=== PATIENT | female | born 1985 | race African-American/Black ===

== ENCOUNTER 2021-02-15 17:34 | Emergency (ER) | payer OTHER, MEDICAID ==
[~2021-02-15] VITALS: Ht 165.1 cm; Wt 70.0 kg
[2021-02-15 22:59] LABS: CLARITY URINE CLOUDY (CLEAR); COLOR URINE YELLOW (YELLOW); KETONES URINE NEGATIVE (NEGATIVE); LEUKOCYTE ESTERASE URINE 1+ (NEGATIVE); NITRITE URINE POSITIVE (NEGATIVE); OCCULT BLOOD URINE NEGATIVE (NEGATIVE); PROTEIN URINE NEGATIVE (NEGATIVE); SPECIFIC GRAVITY URINE 1.017 (1.005-1.030)
[2021-02-15 23:25] LABS: *BARBITURATES SCREEN URINE NEGATIVE (NEGATIVE); *BENZODIAZEPINES SCREEN URINE NEGATIVE (NEGATIVE); *COCAINE SCREEN URINE NEGATIVE (NEGATIVE); METHADONE URINE SCREEN NEGATIVE (NEGATIVE); OPIATES URINE SCREEN NEGATIVE (NEGATIVE); PHENCYCLIDINE URINE SCREEN NEGATIVE (NEGATIVE)
[2021-02-15 23:26] LABS: CANNABINOID URINE SCREEN NEGATIVE (NEGATIVE)
[2021-02-15 23:35] LABS: *AMPHETAMINES SCREEN URINE PRESUMTIVE POSITIVE (NEGATIVE)
[2021-02-16] MEDS: OLANZAPINE 5MG TABLET PO SCH (00:30)
[2021-02-16] MEDS: FLUOXETINE HCL 10 MG CAPSULE PO SCH (00:30)
[2021-02-16] MEDS ORDERED: CEPH250C2 MT (00:52)
[2021-02-16] MEDS ORDERED: METR500T MT (00:52)
[2021-02-16] MEDS ORDERED: AZITHROMYCIN 500 MG TABLET PO ONE (01:00)
[2021-02-16] MEDS ORDERED: CEFTRIAXONE SODIUM 1 G/VIAL IM ONE (01:00)
[2021-02-16] MEDS ORDERED: METRONIDAZOLE 500MG TABLET PO ONE (01:00)
[2021-02-16 16:25] LABS: BASOPHILS % 0.5 % (0.0-2.0); EOSINOPHILS % 0.7 % (0.0-5.0); HEMATOCRIT. 41.2 % (36.0-48.0); HEMOGLOBIN. 14.4 g/dL (12.0-16.0); LYMPHOCYTES % 30.3 % (20.0-50.0); MEAN CORPUSCULAR HEMOGLOBIN 33.9 pg (28.0-32.0); MEAN CORPUSCULAR VOLUME 96.9 fL (81.0-99.0); MEAN PLATELET VOLUME 7.8 fl (7.4-10.4); MONOCYTES % 6.6 % (2.0-8.0); NEUTROPHILS % 61.9 % (40.0-76.0); PLATELET 318 x1000/uL (130-400); RED BLOOD CELL COUNT 4.25 mill/uL (4.2-5.4); RED CELL DISTRIBUTION WIDTH 12.3 % (11.6-14.6)
[2021-02-16 16:30] LABS: CHLORIDE 108 mEq/L (98-107)
[2021-02-16 16:36] LABS: ETHANOL BLOOD < 10 mg/dL
[2021-02-16 16:53] LABS: HCG SCREEN NEGATIVE
[2021-02-16] MEDS: CEPHALEXIN 250MG CAPSULE PO SCH (21:26)
[2021-02-17] MEDS: FLUOXETINE HCL 10 MG CAPSULE PO SCH (09:27)
[2021-02-17] MEDS: OLANZAPINE 5MG TABLET PO SCH (09:28)
[2021-02-17] MEDS: CEPHALEXIN 250MG CAPSULE PO SCH ×4 (09:28→21:16)
[2021-02-17 20:00] VITALS: BP 125/86
== END 2021-02-17 21:21 | disposition home or self-care (01) ==
LOC: ER 17:34
DX: F23 Brief psychotic disorder (principal); Z77.098 Contact with and (suspected) exposure to other hazardous, chiefly nonmedicinal, chemicals; R45.851 Suicidal ideations; E11.9 Type 2 diabetes mellitus without complications; I10 Essential (primary) hypertension; G40.909 Epilepsy, unspecified, not intractable, without status epilepticus; F15.10 Other stimulant abuse, uncomplicated; F16.10 Hallucinogen abuse, uncomplicated; Z20.822 Contact with and (suspected) exposure to COVID-19; Z75.1 Person awaiting admission to adequate facility elsewhere
CPT/HCPCS: 36415; 80305; 81003; 99285